=== PATIENT | female | born 1980 | race Caucasian/White ===

== ENCOUNTER → 2017-12-03 08:59 | Outpatient (CLI) | payer OTHER, SELFPAY ==
[2017-12-03 09:04] LABS: Bacteria Urine None Seen; RBC Urine None Seen (0-5/HPF)
[2017-12-03 10:19] LABS: Appearance Urine UA CLEAR; Bilirubin Urine UA NEGATIVE (NEGATIVE); Color Urine UA YELLOW; Glucose Urine UA NEGATIVE (Normal); Ketones Urine UA NEGATIVE (NEGATIVE); Leukocyte Esterase Urine UA 1+ (NEGATIVE); Nitrite Urine UA Negative (Negative); Occult Blood Urine UA NEGATIVE (Negative); Protein Urine UA NEGATIVE (Negative); Specific Gravity Urine UA 1.015 (1.000-1.035); Urobilinogen Urine UA 0.2 E.U./dL (0.2); pH Urine UA 7.5 (4.5-8.0)
[2017-12-03 10:20] LABS: WBC Urine 0-1/HPF (0-5/HPF)
[2017-12-03 10:21] LABS: Culture Indicated Urine Specimen Cultured; Squamous Epithelial Cell Urine 0-1 /HPF
[2017-12-03 10:34] LABS: Add Manual Diff / Slide Review NO; Basophils Percent Auto 0.7 % (0-2); Eosinophils Percent Auto 4.7 % (2-4); Hematocrit 41.2 % (36-46); Hemoglobin 14.3 g/dL (12.0-16.0); Lymphocytes Percent Auto 34.3 % (25-40); Mean Corpuscular HGB Conc 34.8 % (30-36); Mean Corpuscular Hemoglobin 30.5 PG (26-34); Mean Corpuscular Volume 87.7 fL (80-100); Monocytes Percent Auto 13.6 % (3-14); Neutrophils Absolute Auto 2200 /uL (3000-5900); Neutrophils Percent Auto 46.7 % (50-75); Platelet Count 145 X10^3/uL (150-400); Red Cell Distribution Width 12.8 % (11.6-14.8); White Blood Cell Count 4.8 X10^3/uL (4.5-11.0)
[2017-12-03 11:17] LABS: Alanine Aminotransferase 36 IU/L (9-52); Albumin 4.5 g/dL (3.5-5.0); Albumin Globulin Ratio 1.6 (1.0-2.8); Alkaline Phosphatase 40 U/L (38-126); Aspartate Aminotransferase 30 IU/L (14-36); BUN Creatinine Ratio 21.3 (6-22); Bilirubin Total 0.8 mg/dL (0.2-1.3); Blood Urea Nitrogen 17 mg/dL (7-17); Calcium 9.5 mg/dL (8.4-10.2); Carbon Dioxide 29 mmol/L (22-32); Chloride 103 mmol/L (98-107); Cholesterol 127 mg/dL (140-199); Estimated Glomerular Filt Rate > 60.0 mL/min (>60); Globulin 2.8 g/dL (1.7-4.1); Glucose 89 mg/dL (70-100); HDL Cholesterol 68 mg/dL (40-60); HEMOLYSIS < 15 (0-50); LDL Cholesterol Calculated 52 mg/dL (<100); Potassium 4.4 mmol/L (3.4-5.1); Sodium 142 mmol/L (137-145); Total Protein 7.3 g/dL (6.3-8.2); Triglycerides 34 mg/dL (35-150)
[2017-12-03 11:36] LABS: Free T3, Triiodothyronine Free 3.54 pg/mL (2.77-5.27); Free T4, Direct Thyroxine 0.84 ng/dL (0.78-2.19)
[2017-12-03 11:49] LABS: Thyroid Stimulating Hormone 4.17 uIU/mL (0.47-4.68)
== END ==
PROVIDERS: PCP Family Medicine; Visit Provider Family Medicine
DX: R63.5 Abnormal weight gain (principal); R53.83 Other fatigue
CPT/HCPCS: 36415; 80053; 80061; 81001; 84439; 84443; 84481; 85025; 87086

== ENCOUNTER → 2017-12-29 12:08 | Outpatient (CLI) | payer OTHER, SELFPAY ==
[2017-12-31 16:12] LABS: Thyroid Peroxidase Antibodies 85 IU/mL (< 9)
== END ==
PROVIDERS: PCP Family Medicine; Visit Provider Family Medicine
DX: R53.83 Other fatigue (principal); R63.5 Abnormal weight gain
CPT/HCPCS: 36415; 86376

== ENCOUNTER → 2018-07-07 13:51 | Outpatient (CLI) | payer OTHER, SELFPAY ==
[2018-07-07 16:43] LABS: Free T4, Direct Thyroxine 0.91 ng/dL (0.78-2.19)
[2018-07-07 16:57] LABS: Thyroid Stimulating Hormone 2.52 uIU/mL (0.47-4.68)
== END ==
PROVIDERS: PCP Family Medicine; Visit Provider Family Medicine
DX: R53.83 Other fatigue (principal); R63.5 Abnormal weight gain
CPT/HCPCS: 36415; 84439; 84443; 84481

== ENCOUNTER → 2019-04-25 07:34 | Outpatient (CLI) | payer OTHER, SELFPAY ==
[2019-04-25 08:19] LABS: Hematocrit 39.5 % (36-46); Hemoglobin 13.5 g/dL (12.0-16.0); Mean Corpuscular HGB Conc 34.2 % (30-36); Mean Corpuscular Hemoglobin 31.3 PG (26-34); Mean Corpuscular Volume 91.4 fL (80-100); Platelet Count 160 X10^3/uL (150-400); Red Blood Cell Count 4.32 X10^6/uL (4.0-5.2); White Blood Cell Count 4.1 X10^3/uL (4.5-11.0)
[2019-04-25 08:35] LABS: Alanine Aminotransferase 27 IU/L (<35); Albumin 4.1 g/dL (3.5-5.0); Albumin Globulin Ratio 1.5 (1.0-2.8); Alkaline Phosphatase 50 U/L (38-126); Aspartate Aminotransferase 33 IU/L (14-36); BUN Creatinine Ratio 18.8 (6-22); Bilirubin Total 0.8 mg/dL (0.2-1.3); Blood Urea Nitrogen 15 mg/dL (7-17); Calcium 9.3 mg/dL (8.4-10.2); Carbon Dioxide 29 mmol/L (22-32); Chloride 104 mmol/L (98-107); Estimated Glomerular Filt Rate > 60.0 mL/min (>60); Globulin 2.7 g/dL (1.7-4.1); Glucose 97 mg/dL (70-100); HEMOLYSIS < 15 (0-50); Sodium 139 mmol/L (137-145); Total Protein 6.8 g/dL (6.3-8.2)
[2019-04-25 09:06] LABS: TSH w/ Reflex to FT4 2.49 uIU/mL (0.47-4.68)
== END ==
PROVIDERS: PCP Nurse Practitioner Family; Referring Provider Nurse Practitioner Family; Visit Provider Nurse Practitioner Family
DX: Z00.00 Encounter for general adult medical examination without abnormal findings (principal); Z83.49 Family history of other endocrine, nutritional and metabolic diseases
CPT/HCPCS: 36415; 80053; 84443; 85027

== ENCOUNTER → 2019-05-01 13:09 | Outpatient (CLI) | payer OTHER, SELFPAY ==
--- NOTE | 2019-05-01 | DI.US.S_ITS ---
ULTRASOUND OF RIGHT BREAST: 05/01/2019 CLINICAL: Left breast thickening. Comparison is made to exams dated: 05/01/2019 [facility] and 03/05/2014 mammogram - [facility]. Real-time ultrasound of the right breast was performed. Damico scale images of the real-time examination were reviewed. No significant abnormalities were seen sonographically in the right breast. The parenchymal echotexture is similar to that seen in the symptomatic left breast. No skin, nipple, or ductal abnormalities. IMPRESSION: NEGATIVE There is no sonographic evidence of malignancy. A 1 year screening mammogram is recommended. This exam was interpreted at Station ID: [id number]. Electronically Signed By: Facundo Dominguez M.D. aty/:05/01/2019 16:49:42 letter sent: Normal Exam Ultrasound BI-RADS: 1 Negative
--- NOTE | 2019-05-01 13:10 | DI.MG.S_ITS ---
BILATERAL DIGITAL DIAGNOSTIC MAMMOGRAM 3D/2D: 05/01/2019 CLINICAL: Left breast enlargement. Comparison is made to exam dated: 03/05/2014 mammogram - [facility]. The tissue of both breasts is extremely dense, which lowers the sensitivity of mammography. No significant masses, calcifications, or other findings are seen in either breast. No significant difference in breast size is appreciated mammographically. No axillary adenopathy. No skin thickening or nipple abnormalities seen. IMPRESSION: INCOMPLETE: NEEDS ADDITIONAL IMAGING EVALUATION There is no abnormality seen in the left breast to correspond with the area of clinical concern/generalized swelling and pain, however, ultrasound is recommended which is scheduled to immediately follow this exam. Additionally, the right breast will be evaluated sonographically to compare the appearance of patient's breast parenchymal echotexture given that they are extremely dense on mammography. This exam was interpreted at Station ID: [id number]. NOTE: For mammograms, a report in lay terms will be sent to the patient. Approximately 15% of breast malignancies will not be visualized mammographically. In the management of a palpable breast mass, a negative mammogram must not discourage biopsy of a clinically suspicious lesion. Electronically Signed By: Facundo Dominguez M.D. aty/:05/01/2019 14:54:24 ACR BI-RADS Category 0: Incomplete 3340F
--- NOTE | 2019-05-01 13:10 | DI.US.S_ITS ---
ULTRASOUND OF LEFT BREAST: 05/01/2019 CLINICAL: Thickening in both breasts. Comparison is made to exams dated: 05/01/2019 mammogram [facility] and 03/05/2014 mammogram - [facility]. Real-time ultrasound of the left breast was performed. Damico scale images of the real-time examination were reviewed. No significant abnormalities were seen sonographically in the left breast. No mass, architectural distortion, skin thickening or nipple abnormalities. No ductal dilatation. Sonographic appearance of the left breast is similar to the asymptomatic right breast. IMPRESSION: NEGATIVE There is no sonographic evidence of malignancy. There is no abnormality seen in the left breast to correspond with reported diffuse left breast swelling and tenderness without focal palpable masses. However, clinical followup is recommended for persistent or worsening symptoms or development of any skin/nipple abnormalities, palpable masses or suspicious nipple discharge. Otherwise, a 1 year screening mammogram is recommended at age 40. This exam was interpreted at Station ID: [id number]. Electronically Signed By: Facundo Dominguez M.D. at/:05/01/2019 16:39:57 letter sent: Normal Exam Ultrasound BI-RADS: 1 Negative
== END ==
PROVIDERS: PCP Nurse Practitioner Family; Referring Provider Nurse Practitioner Family; Visit Provider Nurse Practitioner Family
DX: R92.8 Other abnormal and inconclusive findings on diagnostic imaging of breast (principal); N62 Hypertrophy of breast; N64.4 Mastodynia
CPT/HCPCS: 76642; 77066; G0279

== ENCOUNTER → 2020-05-06 08:33 | Outpatient (CLI) | payer OTHER, SELFPAY ==
[2020-05-06 09:01] LABS: Hematocrit 42.5 % (36-46); Hemoglobin 14.6 g/dL (12.0-16.0); Mean Corpuscular HGB Conc 34.3 % (30-36); Mean Corpuscular Hemoglobin 31.2 PG (26-34); Mean Corpuscular Volume 91.2 fL (80-100); Platelet Count 170 X10^3/uL (150-400); Red Blood Cell Count 4.66 X10^6/uL (4.0-5.2); Red Cell Distribution Width 12.7 % (11.6-14.8); White Blood Cell Count 4.2 X10^3/uL (4.5-11.0)
[2020-05-06 09:15] LABS: Alanine Aminotransferase 17 IU/L (<35); Albumin 4.2 g/dL (3.5-5.0); Albumin Globulin Ratio 1.6 (1.0-2.8); Alkaline Phosphatase 52 U/L (38-126); Aspartate Aminotransferase 26 IU/L (14-36); BUN Creatinine Ratio 19.2 (6-22); Bilirubin Total 0.8 mg/dL (0.2-1.3); Blood Urea Nitrogen 15 mg/dL (7-17); Calcium 9.7 mg/dL (8.4-10.2); Carbon Dioxide 30 mmol/L (22-32); Chloride 101 mmol/L (98-107); Cholesterol 148 mg/dL (140-199); Estimated Glomerular Filt Rate > 60.0 mL/min (>60); Globulin 2.7 g/dL (1.7-4.1); Glucose 95 mg/dL (70-100); HDL Cholesterol 100 mg/dL (40-60); HEMOLYSIS < 15 (0-50); LDL Cholesterol Calculated 41 mg/dL (<100); Potassium 4.3 mmol/L (3.4-5.1); Sodium 137 mmol/L (137-145); Total Protein 6.9 g/dL (6.3-8.2); Triglycerides 36 mg/dL (35-150)
[2020-05-06 09:47] LABS: TSH w/ Reflex to FT4 2.58 uIU/mL (0.47-4.68)
[2020-05-06 10:04] LABS: Vitamin B12 Reflex MMA if <400 474 pg/mL (239-931)
== END ==
PROVIDERS: PCP Nurse Practitioner Family; Referring Provider Nurse Practitioner Family; Visit Provider Nurse Practitioner Family
DX: R53.83 Other fatigue (principal); Z13.6 Encounter for screening for cardiovascular disorders
CPT/HCPCS: 36415; 80053; 80061; 82607; 84443; 85027

== ENCOUNTER → 2020-06-10 15:50 | Outpatient (CLI) | payer OTHER, SELFPAY ==
--- NOTE | 2020-06-10 15:52 | DI.MG.S_ITS ---
BILATERAL DIGITAL SCREENING MAMMOGRAM 3D/2D WITH CAD: 06/10/2020 CLINICAL: Routine screening. Comparison is made to exams dated: 05/01/2019 [facility] and 03/05/2014 mammogram - [facility]. The tissue of both breasts is extremely dense, which lowers the sensitivity of mammography. Current study was also evaluated with a Computer Aided Detection (CAD) system. No significant masses, calcifications, or other findings are seen in either breast. There has been no significant interval change. IMPRESSION: NEGATIVE There is no mammographic evidence of malignancy. A 1 year screening mammogram is recommended. This exam was interpreted at Station ID: [id number]. NOTE: For mammograms, a report in lay terms will be sent to the patient. Approximately 15% of breast malignancies will not be visualized mammographically. In the management of a palpable breast mass, a negative mammogram must not discourage biopsy of a clinically suspicious lesion. Electronically Signed By: Everette Jha acr/michael:06/10/2020 16:16:45 letter sent: Normal Exam ACR BI-RADS Category 1: Negative 3341F
== END ==
PROVIDERS: PCP Nurse Practitioner Family; Referring Provider Nurse Practitioner Family; Visit Provider Nurse Practitioner Family
DX: Z12.31 Encounter for screening mammogram for malignant neoplasm of breast (principal)
CPT/HCPCS: 77063; 77067

== ENCOUNTER → 2021-06-29 15:33 | Outpatient (CLI) | payer OTHER, MEDICAID, SELFPAY ==
--- NOTE | 2021-06-29 15:36 | DI.MG.S_ITS ---
BILATERAL DIGITAL SCREENING MAMMOGRAM 3D/2D WITH CAD: 06/29/2021 CLINICAL: Routine screening. Comparison is made to exams dated: 06/10/2020 mammogram, 05/01/2019 ultrasound, 05/01/2019 ultrasound, 05/01/2019 mammogram - [facility], and 03/05/2014 mammogram - [facility]. The tissue of both breasts is extremely dense, which lowers the sensitivity of mammography. Current study was also evaluated with a Computer Aided Detection (CAD) system. No significant masses, calcifications, or other findings are seen in either breast. There has been no significant interval change. IMPRESSION: NEGATIVE There is no mammographic evidence of malignancy. A 1 year screening mammogram is recommended. This exam was interpreted at Station ID: [id number]. NOTE: For mammograms, a report in lay terms will be sent to the patient. Approximately 15% of breast malignancies will not be visualized mammographically. In the management of a palpable breast mass, a negative mammogram must not discourage biopsy of a clinically suspicious lesion. Electronically Signed By: Rodriguez mohr/michael:06/30/2021 09:41:39 letter sent: Normal Exam ACR BI-RADS Category 1: Negative 3341F
== END ==
PROVIDERS: PCP Physician Assistant; Referring Provider Physician Assistant; Visit Provider Physician Assistant
DX: Z12.31 Encounter for screening mammogram for malignant neoplasm of breast (principal)
CPT/HCPCS: 77063; 77067

== ENCOUNTER → 2022-02-17 13:48 | Outpatient (CLI) | payer OTHER, MEDICAID, SELFPAY ==
[2022-02-17 14:20] LABS: COVID19 -Nasal RAPID Negative (Negative)
== END ==
PROVIDERS: PCP Physician Assistant; Referring Provider Orthopaedic Surgery; Visit Provider Orthopaedic Surgery
DX: Z20.822 Contact with and (suspected) exposure to COVID-19 (principal)
CPT/HCPCS: 87635; C9803

== ENCOUNTER 2022-02-19 13:28 | Day surgery (SDC) | payer OTHER, MEDICAID, SELFPAY ==
[2022-02-18 14:51] VITALS: BMI 22.6
[2022-02-19 13:49] VITALS: BMI 21.6
[2022-02-19 13:54] VITALS: BP 121/86; PULSE 69; RESP 16; TEMP 36.6; O2SAT 100
[2022-02-19] MEDS: LACTATED RINGERS 1,000 ML 42 ML IV ×2 (14:03→16:30)
--- NOTE | 2022-02-19 15:08 | PM.PREOP ---
Pre-operative Note Interval Note History & Physical reviewed/Exam performed by Physician: Yes Changes to H&P: No
[2022-02-19] MEDS: CEFAZOLIN 2 GM/100 ML PREMIX 100 ML IV (16:06)
[2022-02-19] MEDS: TRANEXAMIC ACID 1,000 MG VIAL 1000 MG INJ (16:31)
--- NOTE | 2022-02-19 16:38 | SUR.OPER ---
Supine on padded OR bed, head on pillow,left arm secured on padded arm board at <90 degrees abduction, right arm tucked with gel padding, right leg flat, left leg free in sterile field, safety belt at abdomen, small hip human resources executive assistant left lateral thigh, nathe knee positioner at foot, all positioning finalized by surgeon
--- NOTE | 2022-02-19 17:48 | P.OP_ITS ---
Procedure & Clinicians Procedure: Left knee ACL reconstruction with quadriceps autograft Same procedure as scheduled: Yes Indications: Left knee ACL rupture Surgeon: Max Mcgee Compensation And Benefits Manager: Tessa Manuel Anesthesia Type: General Operative Notes Findings: Exam under anesthesia: 2B Kierra's with positive anterior drawer and positive visit shift Patellofemoral joint: Normal articulation and cartilage Medial and lateral gutters: No loose bodies noted Medial compartment: Medial meniscus is intact and medial tibial plateau with normal cartilage, medial femoral condyle also with normal cartilage Intercondylar notch: Intact PCL, incompetent ACL with empty lateral wall sign Lateral compartment: Lateral meniscus intact, 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 The correct left knee was marked with my initials. The patient was then brought into the operating room. A surgical pause was confirmed in the correct site of surgery was again identified. The patient was given perioperative IV antibiotics followed by induction of general anesthesia. A tourniquet was applied to the upper thigh. The lower extremity was then prepped and draped in a standard sterile fashion. After exam under anesthesia revealed an ACL insufficiency, the decision was made to proceed with ACL reconstruction. The leg was exsanguinated with an Esmarch bandage and the tourniquet was inflated to 250 mm hg. A longitudinal incision was made over the quad tendon, about 2-1/2 cm starting at the proximal pole of the patella. The quadriceps tendon was elevated off of the patella, and a FiberLoop was used to tag the end of the tendon. This was then placed through a a size 9 quad pro harvester. This was used to obtain a 70 mm graft that was then taken down to 65 mm. The tendon was noted to be full thickness, and a closure was performed with 0 Vicryl. This was taken to the back table and prepared by the physician emergency medicine physician assistant. A separate anterolateral portal was made. An anterior medial portal was also made outside in. Once diagnostic arthroscopy was completed, the tourniquet was deflated for a total time of 25 minutes. There was a complete tear of the functional fibers of the anterior cruciate ligament. The remnant of the ligament was debrided. Minimal notchplasty was performed. Femoral flip cutting guide was then placed through the lateral portal. Once appropriate position was determined, this was drilled, flipped and back drilled to a tunnel length of about 30 mm. A passing suture was then passed using the fiber stick. Next, the tibial insertion point was identified, and a tibial guide was used with the flip cutter. A small incision was made medial to the tibial tubercle. This was used in a similar fashion and a 30 mm tunnel was obtained. Tunnel edges were cleared off. A large passport portal was then placed through the medial portal and sutures were pulled out through this portal. The graft was then passed, and the femoral button was passed 1st under direct visualization through the medial portal was noted to be flipped. The femoral side was then pulled up about 10 mm, and then the tibial side was then passed into its tunnel. We then pulled in additional 10 mm into the femoral tunnel. The arthroscope was removed, the leg was placed into extension and the tibial side was then tensioned. Final tightening was done on the femoral side. The arthroscope was reinserted and it was noted that there was no impingement of the graft on the femoral notch and the graft had good tension. Arthroscope was then removed and a Kierra's test demonstrated good tension with firm endpoint, and no pivot. A layered skin closure was performed, followed by sterile dressings, cold therapy, and a hinged knee brace locked in full extension. The patient tolerated the procedure well without complications. Assisting participation: This operation could not have been safely performed (without compromising the technical results or length of the procedure) without the assistance of a skilled surgical asst. The surgical asst was medically necessary for proper positioning, retraction and manipulation of instruments, proper exposure, graft prep, and manipulation of tissue. Complications: none Post-operative Condition: stable Disposition: PACU Plan for aftercare: Postop: Brace to bear remain locked for 2 days and extension, and then unlocked. He will remain on total of 4 weeks. Dressings may come off after 3 days to shower. Ensure that the incision sites are completely dry before replacing new dressings for 2 more days. Five days from surgery, dressings may come off completely and remain open to the air to dry. Crutches as necessary for balance for the 1st 2 weeks.
[2022-02-19 18:03] VITALS: BP 104/72; PULSE 77; RESP 22; TEMP 36.2; O2SAT 100
[2022-02-19 18:08] VITALS: BP 142/83; PULSE 64; RESP 16; O2SAT 98
[2022-02-19 18:15] VITALS: BP 104/72; PULSE 59; RESP 14; O2SAT 99
[2022-02-19] MEDS: OXYCODONE/ACETAMINOPHEN 5/325 TABLET 1 TAB PO ×2 (18:23→18:56)
[2022-02-19] MEDS: ONDANSETRON 4 MG/2 ML INJ IV ×2 (18:23→18:56)
[2022-02-19 19:14] VITALS: BP 148/84; PULSE 59; RESP 16; O2SAT 100
--- NOTE | 2022-02-19 19:55 | SUR.PHASEII ---
191: all discharge instructions reviewed with patient. VSS. Assisted patient via wheelchair to car. Home with dad in stable condition. Prescription at [facility].
== END 2022-02-19 19:15 | disposition home or self-care (01) ==
PROVIDERS: PCP Physician Assistant; Referring Provider Orthopaedic Surgery; Visit Provider Orthopaedic Surgery
PROC: (CPT 29888; principal; 2022-02-19 15:00)
DX: S83.512A Sprain of anterior cruciate ligament of left knee, initial encounter (principal); Y93.89 Activity, other specified; M94.262 Chondromalacia, left knee
CPT/HCPCS: 29888; 15769; 81025; J0690; J1100; J1885; J2250; J2405; J2704; J3010

== ENCOUNTER → 2022-07-20 16:08 | Outpatient (CLI) | payer OTHER, MEDICAID, SELFPAY ==
--- NOTE | 2022-07-20 16:09 | DI.MG.S_ITS ---
BILATERAL DIGITAL SCREENING MAMMOGRAM 3D/2D WITH CAD: 07/20/2022 CLINICAL: Routine screening. Comparison is made to exams dated: 06/29/2021 mammogram, 06/10/2020 mammogram, and 05/01/2019 [facility]. Both breasts are extremely dense, which lowers the sensitivity of mammography (category d />75% glandular tissue). Current study was also evaluated with a Computer Aided Detection (CAD) system. No significant masses, calcifications, or other findings are seen in either breast. There has been no significant interval change. IMPRESSION: NEGATIVE There is no mammographic evidence of malignancy. A 1 year screening mammogram is recommended. Based on the Tyrer Cuzick model (a risk assessment model) the patient's lifetime risk is 15.7% and her 10 year risk is 2.4%. According to the ACR, ACS, and NCCN guidelines, an annual breast MRI exam along with mammogram is recommended if the patient's lifetime risk is 20% or greater. This exam was interpreted at Station ID: [id number]. NOTE: For mammograms, a report in lay terms will be sent to the patient. Approximately 15% of breast malignancies will not be visualized mammographically. In the management of a palpable breast mass, a negative mammogram must not discourage biopsy of a clinically suspicious lesion. Electronically Signed By: Edson otero/michael:07/21/2022 08:05:01 letter sent: Normal Exam ACR BI-RADS Category 1: Negative 3341F
== END ==
PROVIDERS: PCP Physician Assistant; Referring Provider Physician Assistant; Visit Provider Physician Assistant
DX: Z12.31 Encounter for screening mammogram for malignant neoplasm of breast (principal)
CPT/HCPCS: 77063; 77067

== ENCOUNTER → 2023-08-04 11:49 | Outpatient (CLI) | payer OTHER, MEDICAID, SELFPAY ==
--- NOTE | 2023-08-04 | DI.MG.S_ITS ---
BILATERAL DIGITAL SCREENING MAMMOGRAM 3D/2D WITH CAD: 08/04/2023 CLINICAL: Routine screening. Comparison is made to exams dated: 07/20/2022 mammogram, 06/29/2021 mammogram, and 06/10/2020 mammogram - [facility]. Both breasts are extremely dense, which lowers the sensitivity of mammography (category d />75% glandular tissue). Current study was also evaluated with a Computer Aided Detection (CAD) system. No significant masses, calcifications, or other findings are seen in either breast. There has been no significant interval change. IMPRESSION: NEGATIVE There is no mammographic evidence of malignancy. A 1 year screening mammogram is recommended. Based on the Tyrer Cuzick model (a risk assessment model) the patient's lifetime risk is 15.6% and her 10 year risk is 2.5%. According to the ACR, ACS, and NCCN guidelines, an annual breast MRI exam along with mammogram is recommended if the patient's lifetime risk is 20% or greater. This exam was interpreted at Station ID: [id number]. NOTE: For mammograms, a report in lay terms will be sent to the patient. Approximately 15% of breast malignancies will not be visualized mammographically. In the management of a palpable breast mass, a negative mammogram must not discourage biopsy of a clinically suspicious lesion. Electronically Signed By: Marlen Sylvester M.D., Ph.D. abhijeet/michael:08/05/2023 01:39:30 letter sent: Normal Exam ACR BI-RADS Category 1: Negative 3341F
== END ==
LOC: MAMMO 11:50
PROVIDERS: PCP Physician Assistant; Referring Provider Physician Assistant; Visit Provider Physician Assistant
DX: Z12.31 Encounter for screening mammogram for malignant neoplasm of breast (principal); R92.343 Mammographic extreme density, bilateral breasts
CPT/HCPCS: 77063; 77067

== ENCOUNTER → 2025-01-16 14:51 | Outpatient (CLI) | payer OTHER, SELFPAY ==
--- NOTE | 2025-01-16 14:52 | DI.MG.S_ITS ---
MM screening mammo BI: 01/16/2025. BI-RADS: 1 CLINICAL: 44-year old female for bilateral screening mammogram. Tyrer-Cuzick lifetime risk of 12.5%. No personal or first-degree family history of breast cancer. PRIOR EXAMS 08/04/2023, 07/20/2022, 06/29/2021, 06/10/2020. MAMMOGRAPHY TECHNIQUE: 2D and 3D (tomosynthesis) digital mammographic views obtained, with additional images as needed for full coverage. Current study was also evaluated with a Computer Aided Detection (CAD) system. DENSITY D. The breasts are extremely dense, which lowers the sensitivity of mammography. MAMMOGRAPHY FINDINGS Bilateral: No suspicious mass, asymmetry, microcalcification, or other abnormality seen. No significant change from comparison. IMPRESSION: * No evidence of malignancy. RECOMMENDATIONS Bilateral * Annual screening mammography. OVERALL ASSESSMENT CATEGORY BI-RADS-1: Negative. The [employer] recommends annual screening mammography beginning at age 40 for women with average risk of breast cancer. ELECTRONICALLY SIGNED: Terri Waters M.D. on 01/17/2025 at 12:00:11 PM PT Interpreting Station ID: [id number]
== END ==
LOC: MAMMO 14:52
PROVIDERS: PCP Physician Assistant; Referring Provider Physician Assistant; Visit Provider Physician Assistant
DX: Z12.31 Encounter for screening mammogram for malignant neoplasm of breast (principal); R92.343 Mammographic extreme density, bilateral breasts
CPT/HCPCS: 77063; 77067